=== PATIENT | female | born 2000 | race Caucasian/White ===

== ENCOUNTER 2019-03-28 12:55 | Emergency (ER) | payer OTHER, SELFPAY ==
[2019-03-28 13:13] VITALS: BP 134/70; PULSE 91; RESP 20; TEMP 37.7; O2SAT 100
--- NOTE | 2019-03-28 13:26 | ED.GENADULT ---
HPI - General Adult General Chief complaint: Upper Respiratory Infection Stated complaint: SORE THROAT/STEPHENSON/COUGH Time Seen by Provider: 03/28/19 13:26 Source: patient and RN notes reviewed Mode of arrival: ambulatory Limitations: no limitations History of Present Illness HPI narrative: 18-year-old female presents with complaints of RT ear pain, sore throat, and nasal congestion for 7 days. Flonase, Rosi, and Tylenol (last 03/27/19) with little relief. No high fevers, drooling, neck or throat swelling. Pain is bilateral. Hurts to swallow. Exacerbation factors consist of eating and drinking. No rhinorrhea. Nasal congestion. No voice change. No tinnitus and dizziness. No nausea, vomiting, or abdominal pain. Tolerating liquids well. Denies chills, dyspnea, difficulty swallowing, jaw pain, dental pain, facial pain, foreign body sensation, and rash. Remains active. Yessica denies being , LMP 2.5 weeks ago. Some parts of this dictation were generated by voice recognition software and may contain typographical and/or grammatical inaccuracies. Related Data Home Medications Medication Instructions Recorded Confirmed fluticasone propionate [Flonase 1 spray INTRANASAL DAILY 03/28/19 03/28/19 Allergy Relief] loratadine [Claritin] 10 mg PO DAILY 03/28/19 03/28/19 Allergies Allergy/AdvReac Type Severity Reaction Status Date / Time Penicillins AdvReac Nausea and Verified 03/28/19 13:10 Vomiting Review of Systems Review of Systems: Narrative: CONSTITUTIONAL: Denies fever, chills, sweats. EYES: Denies visual changes, redness, discharge. ENT: Complains of rhinorrhea, RT otalgia, sore throat, congestion. CARDIOVASCULAR: Denies chest pain, palpitations, edema. RESPIRATORY: Denies dyspnea, wheezing. Complains of dry. GASTROINTESTINAL: Denies abdominal pain, nausea, vomiting, diarrhea. GENITOURINARY: Denies dysuria, hematuria, abnormal discharge. SKIN: Denies rash or itching. MUSCULOSKELETAL: Denies acute back pain, joint pain, or myalgia. NEUROLOGIC: Denies numbness or focal weakness. PSYCHIATRIC: Denies anxiety or depression. All systems reviewed & are unremarkable except as noted in HPI and below. [facility] Past Medical History Medical History (Updated 04/03/19 @ 06:01 by FABIOLA Araujo) Asthma Childhood Surgical History Surgical History (Updated 04/03/19 @ 06:01 by FABIOLA Araujo) History of tympanostomy Family History Family History (Updated 04/03/19 @ 06:02 by FABIOLA Araujo) Mother Hypertension Father Hypertension Grandparent Carcinoma of colon Social History Social History (Updated 04/03/19 @ 06:03 by FABIOLA Araujo) Smoking status: Never smoker Alcohol intake: never Substance use: never Living arrangements: with family Occupation/Education: occupation Gender identity (if verbalized by the patient): Female Comments At time of signature, agree with nurse past medical, surgical, social, and family history. There is no relevant family history pertinent to the presenting complaint. Exam Narrative: Exam Narrative: GENERAL: This is a well-nourished, well-developed patient, in no apparent distress. Speaks in full sentences without deficits and ambulates with steady gait without dyspnea. HEAD: normocephalic, atraumatic. EYES: PERRL. Sclera clear/white. Vision is grossly intact. EARS: Pinna is normal shape and contour. RT ear with mild erythema and swelling canal with mild discharge and tenderness with manipulation. Clear external auditory canals. LT TM pearly sykes with good cone of light, no erythema or suppuration, unable to visualize RT due to swelling and drainage. No gross hearing deficit. NOSE: External nose normal with no obvious nasal discharge, nares with moderate redness and enlarge turbinates, no rhinorrhea. Mouth: moist mucous membranes. THROAT: Mucous membranes moist, posterior pharynx with PND, moderate erythema, and no
== END 2019-03-28 13:50 | disposition home or self-care (01) ==
PROVIDERS: Emergency Provider Nurse Practitioner Family; PCP Pediatrics
DX: J02.9 Acute pharyngitis, unspecified (principal); H60.91 Unspecified otitis externa, right ear
CPT/HCPCS: 87804; 87880; 99213; G0463

== ENCOUNTER 2021-03-14 13:47 | Emergency (ER) | payer OTHER, SELFPAY ==
--- NOTE | 2021-03-14 13:57 | ED.URI ---
HPI - URI/Sore Throat General Chief Complaint: Upper Respiratory Infection Stated Complaint: Sinus,Headache,Congestion,Cough Time Seen by Provider: 03/14/21 13:57 Source: patient and RN notes reviewed History of Present Illness HPI Narrative: Patient is a 20-year-old female presents the urgent care with complaints of sinus congestion, headache, cough, fever and nausea. Patient states that her mother tested positive for Covid and strep yesterday. Patient states her symptoms started approximately 4 to 5 days ago and the headache is worsened. Patient has been using Zyrtec and ibuprofen for her symptoms. Patient has been Covid vaccinated. Denies of any vomiting, abdominal pain, shortness of breath. No other acute complaints. No acute distress noted. Patient aware of the plan of care. Some parts of this dictation were generated by voice recognition software and may contain typographical and/or grammatical inaccuracies. Related Data Home Medications Medication Instructions Recorded Confirmed clindamycin-benzoyl peroxide 1 applic TOPICAL DAILY 03/14/21 03/14/21 Allergies Allergy/AdvReac Type Severity Reaction Status Date / Time Penicillins AdvReac Intermediate Nausea and Verified 03/14/21 13:57 Vomiting Review of Systems Review of Systems: CONSTITUTIONAL: Reports a fever and fatigue EYES: Denies visual changes, redness, or discharge. ENT: Reports of sinus congestion, sore throat, postnasal drainage CARDIOVASCULAR: Denies chest pain, palpitations, or edema. RESPIRATORY: Reports a mild cough without dyspnea GASTROINTESTINAL: Reports of intermittent nausea GENITOURINARY: Denies dysuria or hematuria. SKIN: Denies rash or itching. MUSCULOSKELETAL: Denies back pain, joint pain, or myalgia. NEUROLOGIC: Reports of headache All other systems reviewed are negative, except as documented in HPI. [facility] Past Medical History Medical History (Updated 03/14/21 @ 14:36 by FABIOLA Laureano) Asthma Childhood Surgical History Surgical History (Updated 04/03/19 @ 06:01 by FABIOLA Araujo) History of tympanostomy Family History Family History (Updated 04/03/19 @ 06:02 by FABIOLA Araujo) Mother Hypertension Father Hypertension Grandparent Carcinoma of colon Social History Social History (Updated 04/03/19 @ 06:03 by FABIOLA Araujo) Smoking status: Never smoker Alcohol intake: never Substance use: never Gender identity (if verbalized by the patient): Female Comments At the time of my signature, I reviewed and agree with the nursing past medical, surgical, social, and family history. There is no relevant family history pertinent to the patient complaint. Exam Narrative: GENERAL: This is a well-nourished, well-developed patient. Reports of fatigue HEAD: normocephalic, atraumatic. EYES: PERRL. Sclera clear/white. Vision is grossly intact. EARS: External ears normal, auditory canals clear and without drainage, TMs normal without perforation. Hearing grossly intact. NOSE: External nose normal with no obvious nasal discharge, nares without redness, clear to yellow rhinorrhea. THROAT: Mucous membranes moist. Moderate erythema noted posterior oropharynx with moderate postnasal drainage. Mild bilateral tonsillar edema with exudate to the left. NECK: Neck supple, non-tender without lymphadenopathy CARDIOVASCULAR: Regular rate and rhythm without murmurs, gallops, or rubs. RESPIRATORY: Clear to auscultation. Breath sounds equal bilaterally. No wheezes, rales, or rhonchi. GASTROINTESTINAL: Abdomen soft, non-tender, nondistended. Bowel sounds are active. SKIN: warm, intact with no suspicious lesions or rash, good texture and turgor. NEURO: awake, alert, and oriented to person, place and time. There were no obvious focal neurologic abnormalities. EXTREMITIES: No clubbing, cyanosis, or edema. Course Course Level of Care: Express Care Visit Vital Signs Vital signs: Vital Signs T
[2021-03-14 13:59] VITALS: BP 154/82; PULSE 95; RESP 18; TEMP 37; O2SAT 100
[2021-03-14 14:08] VITALS: BP 154/82; PULSE 95; RESP 18; TEMP 37; O2SAT 100
== END 2021-03-14 14:45 | disposition home or self-care (01) ==
PROVIDERS: Emergency Provider Nurse Practitioner Family; PCP Physician Assistant
DX: U07.1 COVID-19 (principal)
CPT/HCPCS: 87081; 87426; 87880; 99213; C9803; G0463

== ENCOUNTER 2021-09-10 17:49 | Emergency (ER) | payer OTHER, SELFPAY ==
[2021-09-10 18:02] VITALS: BP 158/83; PULSE 92; RESP 18; TEMP 37.4; O2SAT 100
--- NOTE | 2021-09-10 18:07 | ED.GENADULT ---
HPI - General Adult General Chief complaint: Upper Respiratory Infection Stated complaint: sorethroat History of Present Illness HPI narrative: 20 y/o female. PMHx non-contributory. Presents to [facility] today with acute complaints of increased nasal congestion, sore throat, and cough. Manifestations worsening > the past 72 hours. No fever, myalgia. No STEPHENSON, Otalgia. No chest pain, dyspnea, palpitations, edema. She reports to have been exposed to an individual whom was Covid 19 positive in the past 1 week. Subtherapeutic reliefs w/home OTC remedies. No additional acute c/o upon PE. Related Data Home Medications Medication Instructions Recorded Confirmed clindamycin 1.2 % (1 % 1 applic topical DAILY 03/14/21 09/10/21 base)-benzoyl peroxide 5 % topical gel cetirizine 10 mg tablet (Zyrtec) 10 mg PO DAILY 09/10/21 09/10/21 fluticasone propionate 50 1 spray intranasal DAILY 09/10/21 09/10/21 mcg/actuation nasal spray,suspension Allergies Allergy/AdvReac Type Severity Reaction Status Date / Time cat dander Allergy Unknown Verified 09/10/21 18:09 dog dander Allergy Unknown Verified 09/10/21 18:09 Penicillins AdvReac Intermediate Nausea and Verified 09/10/21 18:09 Vomiting Review of Systems Review of Systems: CONSTITUTIONAL: Denies fever, chills, sweats. EYES: Denies visual changes, redness, discharge. ENT: Positive rhinorrhea, congestion, sore throat. No otalgia. CARDIOVASCULAR: Denies chest pain, palpitations, edema. RESPIRATORY: Denies dyspnea, wheezing. Positive cough. GASTROINTESTINAL: Denies abdominal pain, nausea, vomiting, diarrhea. GENITOURINARY: Denies dysuria, hematuria, abnormal discharge SKIN: Denies rash or itching. MUSCULOSKELETAL: Denies acute back pain, joint pain, or myalgia. NEUROLOGIC: Denies numbness, or focal weakness. PSYCHIATRIC: Denies anxiety or depression. [facility] Past Medical History Medical History Asthma Childhood Surgical History Surgical History History of tympanostomy Family History Family History Mother Hypertension Father Hypertension Grandparent Carcinoma of colon Social History Social History Smoking status: Never smoker Alcohol intake: never Substance use: never Gender identity (if verbalized by the patient): Female Exam Narrative: GENERAL: This is a well-nourished, well-developed patient, in no apparent distress. HEAD: normocephalic EYES:Sclera clear/white. EARS: External ears normal, auditory canals clear and without drainage, TMs normal without perforation. NOSE: Positive rhinorrhea, PND. THROAT: Mucous membranes moist, posterior pharynx erythematous, non-exudative. NECK: Neck supple, non-tender without lymphadenopathy, masses or thyromegaly. CARDIOVASCULAR: Regular rate and rhythm without murmurs, gallops, or rubs. RESPIRATORY: Breath sounds equal bilaterally. No wheezes, rales. Upper airway rhonchi, cleared with cough. GASTROINTESTINAL: Abdomen soft, non-tender, nondistended. Bowel sounds are active. No hepato-splenomegaly, or palpable masses. No guarding. SKIN: warm, intact with no suspicious lesions or rash, good texture and turgor. NEURO: awake, alert, no focal neurologic abnormalities. Course Course Level of Care: Express Care Visit Vital Signs Vital signs: Vital Signs Temperature 37.4 C 09/10/21 18:02 Pulse Rate 92 09/10/21 18:02 Respiratory Rate 18 09/10/21 18:02 Blood Pressure 158/83 H 09/10/21 18:02 Pulse Oximetry 100 09/10/21 18:02 Oxygen Delivery Room Air 09/10/21 18:02 Temperature 37.4 C 09/10/21 18:02 Pulse Rate 92 09/10/21 18:02 Respiratory Rate 18 09/10/21 18:02 Blood Pressure 158/83 H 09/10/21 18:02 Pulse Oximetry 100
== END 2021-09-10 18:29 | disposition home or self-care (01) ==
PROVIDERS: Emergency Provider Nurse Practitioner Adult Health; PCP Physician Assistant
DX: J06.9 Acute upper respiratory infection, unspecified (principal); Z20.822 Contact with and (suspected) exposure to COVID-19
CPT/HCPCS: 87426; 99213; C9803; G0463

== ENCOUNTER 2021-09-11 19:28 | Emergency (ER) | payer OTHER, SELFPAY ==
[2021-09-11 19:35] VITALS: BP 145/88; PULSE 80; RESP 16; TEMP 37; O2SAT 100
--- NOTE | 2021-09-11 19:35 | ED.NAVMDI ---
HPI - Nausea/Vomiting/Diarrhea General Chief complaint: Abdominal Pain Stated complaint: Abdominal Pain,Chest Pain,Headache Time Seen by Provider: 09/11/21 19:44 Source: patient and RN notes reviewed Mode of arrival: ambulatory Limitations: no limitations History of Present Illness HPI Narrative: 20-year-old female presents with concern for nausea, vomiting, abdominal pain. She reports she was seen yesterday in this clinic and prescribed a Z-Alexis for an upper respiratory infection, she reports she took the first dose of the Z-Alexis on an empty stomach and then vomited. She reports she has been having abdominal pain, back pain, epigastric pain since then. She reports she is taking Tylenol, Zyrtec and Flonase. She reports normal bowel movements. MD elicited complaint: nausea, vomiting and abdominal pain Related Data Home Medications Medication Instructions Recorded Confirmed clindamycin 1.2 % (1 % 1 applic topical DAILY 03/14/21 09/11/21 base)-benzoyl peroxide 5 % topical gel cetirizine 10 mg tablet (Zyrtec) 10 mg PO DAILY 09/10/21 09/11/21 fluticasone propionate 50 1 spray intranasal DAILY 09/10/21 09/11/21 mcg/actuation nasal spray,suspension Allergies Allergy/AdvReac Type Severity Reaction Status Date / Time cat dander Allergy Unknown Verified 09/11/21 19:40 dog dander Allergy Unknown Verified 09/11/21 19:40 Penicillins AdvReac Intermediate Nausea and Verified 09/11/21 19:40 Vomiting Review of Systems Review of Systems: CONSTITUTIONAL: Denies malaise, chills, sweats, or fever. ENT: Reports rhinorrhea, congestion. Denies sinus pain, otalgia or sore throat. CARDIOVASCULAR: Denies chest pain, palpitations, or edema. RESPIRATORY: Denies cough or dyspnea. GASTROINTESTINAL: Reports left upper abdominal pain, nausea, vomiting. Denies diarrhea, bloody, or mucous stools. GENITOURINARY: Denies dysuria or hematuria. MUSCULOSKELETAL: Denies myalgia. NEUROLOGIC: Reports headache. All systems reviewed & are unremarkable except as noted in HPI and below PMFSH Past Medical History Medical History Asthma Childhood Surgical History Surgical History History of tympanostomy Family History Family History Mother Hypertension Father Hypertension Grandparent Carcinoma of colon Social History Social History Smoking status: Never smoker Alcohol intake: never Substance use: never Gender identity (if verbalized by the patient): Female Comments At time of signature, agree with nursing past medical, surgical, social and family history. There is no relevant family history pertinent to the presenting complaint Exam Narrative: GENERAL: Well-appearing and in no acute distress. HEAD: Normocephalic, atraumatic. EYES: PERRLA, conjunctivae clear, and EOMI. ENT: Nares clear, turbinates edematous and erythematous, clear discharge. No sinus tenderness mucous membranes moist. TM pearly marie with dull light reflex bilaterally; no tragal tenderness. Oropharynx not erythematous without lesions. Tonsils not enlarged and without exudate, no drooling, no hoarseness, no trismus, uvula midline. NECK: Supple. No lymphadenopathy CHEST: Speaks in full sentences. No respiratory distress. HEART: Regular rate and rhythm. ABDOMEN: Soft, flat, nondistended. Left upper quadrant tenderness. No guarding, rebound tenderness, or rigid. No pulsatilla masses. Bowel sounds present in all four quadrants. No organomegaly. Negative Damico?s sign. No periumbilical tenderness. No Supra public tenderness or distension. Good femoral pulses bilaterally. No hernia noted. No scars or surface trauma. SKIN: Warm, dry, no rash. NEURO: Alert and oriented x3. PSYCH: Normal mood and affect Course Course Emergency Cours
[2021-09-11] MEDS: ONDANSETRON HCL ODT 4 MG TABLET PO (19:55)
[2021-09-11] MEDS: LIDOCAINE HCL 2% VISC SOLN 15 ML UDC PO (19:55)
[2021-09-11] MEDS: MAG HYDROX/AL HYDROX/SIMETH 30 ML UDC PO (19:55)
== END 2021-09-11 20:15 | disposition home or self-care (01) ==
PROVIDERS: Emergency Provider Nurse Practitioner; PCP Physician Assistant
DX: R10.13 Epigastric pain (principal)
CPT/HCPCS: 99213; A9270; G0463